=== PATIENT | male | born 1955 | race Caucasian/White ===

== ENCOUNTER 2016-05-08 15:55 | Emergency (ER) | payer BC, OTHER ==
[~2016-05-08] VITALS: Ht 175.3 cm; Wt 80.0 kg
[~2016-05-08 15:55] MED LIST: ASPIRIN 81M81 MG/TA2 PO; EFFIENT10 MG PO; LOPRESSOR 225 MG/TAB PO; NITROSTAT0.4 MG/TAB SL; NO HOME MEDICATIONS; ZESTRIL 5MG5 MG PO
[2016-05-08 16:08] VITALS: TEMP 97.8
[2016-05-08 16:17] LABS: BASO # 0.1 (0.0-0.2); EOS # 0.1 (0.0-0.7); EOS % 1.1 % (0-4.0); GRAN # 8.7 (1.4-6.5); GRAN % 65.2 % (42.2-75.2); HEMATOCRIT 50.2 % (42.0-52.0); HEMOGLOBIN 17.3 g/dl (13.5-18.0); LYMPH # 3.5 (1.2-3.4); MEAN CELL VOLUME 83 fl (80.0-100.0); MEAN CORPUSCULAR HEMOGLOBIN 29 pg (27.0-31.0); MEAN CORPUSCULAR HGB CONC 35 g/dl (33.0-37.0); MEAN PLATELET VOLUME 9.9 fl (7.4-10.4); MONO # 0.8 (0.1-0.6); MONO % 6.2 % (1.7-9.3); PLATELET COUNT 252 K/mm3 (130-400); RED BLOOD COUNT 6.03 M/mm3 (4.20-5.60); REDCELL DISTRIBUTION WIDTH-CV 12.7 % (11.5-14.5); WHITE BLOOD COUNT 13.3 K/mm3 (4.8-10.8)
[2016-05-08 16:22] LABS: PROTHROMBIN TIME 11.6 SECONDS (9.7-12.8)
[2016-05-08 16:24] LABS: PARTIAL THROMBOPLASTIN TIME 32.4 SECONDS (26.0-37.0)
[2016-05-08 16:26] LABS: ADJUSTED CALCIUM 9.7 mg/dL (8.4-10.2); ALBUMIN 4.4 gm/dL (3.5-5.0); BILIRUBIN,TOTAL 0.9 mg/dL (0.0-1.0); CREATININE, serum 1.01 mg/dL (0.66-1.25); POTASSIUM 3.4 mmol/L (3.4-5.0); TOTAL PROTEIN 8.8 gm/dL (6.4-8.2)
[2016-05-08 16:37] LABS: TROPONIN-I 0.033 ng/mL (0.000-0.034)
[2016-05-08] MEDS ORDERED: NITROSTAT0.4 MG/TAB SL (16:47)
[2016-05-08 17:48] VITALS: BP 122/80; PULSE 74
== END 2016-05-08 17:48 | disposition short-term general hospital (02) ==
LOC: COL.ER 15:55
PROVIDERS: Emergency Medicine
DX: I21.29 ST elevation (STEMI) myocardial infarction involving other sites (principal); I10 Essential (primary) hypertension; E78.5 Hyperlipidemia, unspecified; Z95.5 Presence of coronary angioplasty implant and graft; Z91.14 Patient's other noncompliance with medication regimen; I25.2 Old myocardial infarction; F17.210 Nicotine dependence, cigarettes, uncomplicated
CPT/HCPCS: J0282; J1644; J2270; J2765; J3101; J7030; J7060

== ENCOUNTER 2016-05-31 13:01 | Outpatient (RCR) | payer BC ==
[2016-07-16] MEDS ORDERED: GLUCOTROL XL5 MG/TAB PO (15:22)
[2016-07-16] MEDS ORDERED: TOPROL XL 50MG50 MG PO (15:22)
== END 2016-08-22 | disposition home or self-care (01) ==
LOC: COL.CR
DX: Z48.812 Encounter for surgical aftercare following surgery on the circulatory system (principal); Z95.1 Presence of aortocoronary bypass graft; I25.10 Atherosclerotic heart disease of native coronary artery without angina pectoris

== ENCOUNTER 2016-07-16 15:04 | Inpatient (IN) | payer BC ==
[~2016-07-16] VITALS: Ht 175.3 cm; Wt 79.0 kg
[2016-07-16] VITALS (184 sets, daily range): BP systolic 139–149; BP diastolic 71–90; PULSE 63–65; TEMP 97.1–98.9; O2SAT 85–99
[2016-07-16] MEDS ORDERED: GLUCOTROL XL5 MG/TAB PO (15:22)
[2016-07-16] MEDS ORDERED: TOPROL XL 50MG50 MG PO (15:22)
[2016-07-16 15:31] LABS: BASO # 0.1 (0.0-0.2); BASO % 0.4 % (0.0-2.0); EOS # 0.1 (0.0-0.7); EOS % 0.4 % (0-4.0); GRAN # 10.9 (1.4-6.5); HEMATOCRIT 43.8 % (42.0-52.0); HEMOGLOBIN 14.6 g/dl (13.5-18.0); LYMPH # 1.9 (1.2-3.4); MEAN CELL VOLUME 83 fl (80.0-100.0); MEAN CORPUSCULAR HEMOGLOBIN 28 pg (27.0-31.0); MEAN CORPUSCULAR HGB CONC 33 g/dl (33.0-37.0); MEAN PLATELET VOLUME 10.2 fl (7.4-10.4); MONO # 0.8 (0.1-0.6); MONO % 5.8 % (1.7-9.3); PLATELET COUNT 215 K/mm3 (130-400); RED BLOOD COUNT 5.25 M/mm3 (4.20-5.60); REDCELL DISTRIBUTION WIDTH-CV 13.8 % (11.5-14.5); WHITE BLOOD COUNT 13.8 K/mm3 (4.8-10.8)
[2016-07-16 15:45] LABS: ADJUSTED CALCIUM 8.9 mg/dL (8.4-10.2); ALBUMIN 4.1 gm/dL (3.5-5.0); BILIRUBIN,TOTAL 0.7 mg/dL (0.0-1.0); CREATININE, serum 0.79 mg/dL (0.66-1.25); TOTAL PROTEIN 7.9 gm/dL (6.4-8.2)
[2016-07-16 15:57] LABS: TROPONIN-I 0.016 ng/mL (0.000-0.034)
[2016-07-17] VITALS (18 sets, daily range): BP systolic 124; BP diastolic 78; PULSE 65; TEMP 97.1; O2SAT 94–97
== END 2016-07-17 00:27 | disposition short-term general hospital (02) | DRG 282 ==
LOC: COL.ER 15:04 → MEDICAL 17:33 → EDBEDREQ 17:34 → ICU 20:25
PROVIDERS: Emergency Medicine
DX: I21.4 Non-ST elevation (NSTEMI) myocardial infarction (principal); E78.5 Hyperlipidemia, unspecified; E11.9 Type 2 diabetes mellitus without complications; Z66 Do not resuscitate; J44.9 Chronic obstructive pulmonary disease, unspecified; F17.210 Nicotine dependence, cigarettes, uncomplicated; I25.2 Old myocardial infarction; Z95.5 Presence of coronary angioplasty implant and graft; Z95.1 Presence of aortocoronary bypass graft
CPT/HCPCS: J1650; J2060; J2270; Q9967

== ENCOUNTER 2021-03-29 10:31 | Emergency (ER) | payer MEDICARE ==
[~2021-03-29] VITALS: Ht 175.3 cm; Wt 77.3 kg
[~2021-03-29 10:31] MED LIST changes: +GLUCOTROL XL5 MG/TAB PO; +TOPROL XL 50MG50 MG PO
[2021-03-29 11:15] LABS: BASO % 0.4 % (0.0-2.0); EOS % 0.2 % (0.0-4.0); GRAN # 3.1 K/mm3 (1.4-6.5); GRAN % 59.3 % (42.2-75.2); HEMATOCRIT 47.9 % (42.0-52.0); HEMOGLOBIN 16.5 g/dl (13.5-18.0); LYMPH # 1.3 K/mm3 (1.2-3.4); LYMPH % 24.4 % (20.0-51.0); MEAN CELL VOLUME 81 fl (80.0-100.0); MEAN CORPUSCULAR HEMOGLOBIN 28 pg (27-31); MEAN CORPUSCULAR HGB CONC 34 g/dl (33.0-37.0); MEAN PLATELET VOLUME 10.4 fl (7.4-10.4); MONO # 0.8 K/mm3 (0.1-0.6); MONO % 14.9 % (1.7-9.3); PLATELET COUNT 129 K/mm3 (130-400); RED BLOOD COUNT 5.94 M/mm3 (4.20-5.60)
[2021-03-29 11:24] LABS: ALBUMIN 3.4 gm/dL (3.4-4.8); BILIRUBIN,TOTAL 0.7 mg/dL (0.2-1.2); CALCIUM 8.7 mg/dL (8.4-10.2); CREATININE, serum 1.13 mg/dL (0.72-1.25); POTASSIUM 3.8 mmol/L (3.5-4.5)
[2021-03-29 11:30] LABS: TROPONIN-I 0.016 ng/mL (0.00-0.033)
[2021-03-29 14:30] VITALS: BP 135/67; PULSE 82; TEMP 98.7
== END 2021-03-29 14:40 | disposition home or self-care (01) ==
LOC: COL.ER 10:31
PROVIDERS: Personal Emergency Response Attendant
DX: J44.9 Chronic obstructive pulmonary disease, unspecified (principal); I25.10 Atherosclerotic heart disease of native coronary artery without angina pectoris; E86.0 Dehydration; R19.7 Diarrhea, unspecified; Z87.891 Personal history of nicotine dependence; Z79.82 Long term (current) use of aspirin; Z79.84 Long term (current) use of oral hypoglycemic drugs; Z79.899 Other long term (current) drug therapy
CPT/HCPCS: J7030; Q9967